=== PATIENT | male | born 1950 | race Native Hawaiian/Other Pacific Islander ===

== ENCOUNTER 2018-08-04 20:11 | Inpatient (IN) | payer MEDICARE ==
[2018-08-04 20:14] VITALS: BMI 31.6
[2018-08-04] MEDS ORDERED: Magnesium Hydroxide Susp 30 ml UD PO PRN (20:44)
[2018-08-04] MEDS ORDERED: Oxycodone/Acetaminophen 5/325 mg Tab PO PRN (20:47)
--- NOTE | 2018-08-04 21:05 | CP.PCM.HP ---
History of Present Illness - History of Present Illness History of Present Illness: CC: L knee surgery HPI: 68 year old male with HTN, OA, BPH, hypothyroid, presents to TCU s/p L knee replacement at [facility] by Dr. Cerda. Patient has history of OA, failed conservative treatments. Admitted to TCU for further PT needs. Patient was initiated on Lovenox 40 mg daily, DVT ppx per Ortho. HD stable, no acute distress. ROS: per HPI all other systems reviewed and neg Present on Admission - Present on Admission Any Indicators Present on Admission: No Past Patient History - Past Medical History & Family History Past Medical History?: Yes - Past Social History Smoking Status: Former Smoker - CARDIAC Hx Cardiac Disorders: Yes Hx Hypertension: Yes - PULMONARY Hx Respiratory Disorders: No - NEUROLOGICAL Hx Neurological Disorder: No - HEENT Hx HEENT Problems: Yes Hx Cataracts: Yes (right iol) - RENAL Hx Chronic Kidney Disease: No - ENDOCRINE/METABOLIC Hx Endocrine Disorders: No - HEMATOLOGICAL/ONCOLOGICAL Hx Blood Disorders: No - INTEGUMENTARY Hx Dermatological Problems: No - MUSCULOSKELETAL/RHEUMATOLOGICAL Hx Arthritis: Yes - GASTROINTESTINAL Hx Gastrointestinal Disorders: No - GENITOURINARY/GYNECOLOGICAL Hx Genitourinary Disorders: Yes Hx Prostate Problems: Yes - PSYCHIATRIC Hx Psychophysiologic Disorder: No Hx Substance Use: No - SURGICAL HISTORY Hx Surgeries: Yes Hx Arthroscopy: Yes (left) Hx Cataract Extraction: Yes (right iol) - ANESTHESIA Hx Anesthesia: Yes Hx Anesthesia Reactions: No Hx Malignant Hyperthermia: No Meds Allergies/Adverse Reactions: Allergies Allergy/AdvReac Type Severity Reaction Status Date / Time No Known Allergies Allergy Verified 08/02/18 05:59 Physical Exam - Constitutional Appears: Non-toxic, No Acute Distress - Head Exam Head Exam: ATRAUMATIC, NORMOCEPHALIC - Eye Exam Eye Exam: EOMI, Normal appearance, PERRL - ENT Exam ENT Exam: Mucous Membranes Moist, Normal Exam - Respiratory Exam Respiratory Exam: Clear to Auscultation Bilateral, NORMAL BREATHING PATTERN - Cardiovascular Exam Cardiovascular Exam: RRR, +S1, +S2 - GI/Abdominal Exam GI & Abdominal Exam: Normal Bowel Sounds, Soft. absent: Organomegaly, Tenderness - Extremities Exam Extremities exam: Positive for: normal capillary refill, pedal pulses present - Back Exam Back exam: absent: CVA tenderness (L), CVA tenderness (R) - Neurological Exam Neurological exam: Alert, Oriented x3 - Psychiatric Exam Psychiatric exam: Normal Affect, Normal Mood - Skin Skin Exam: Dry, Warm Assessment & Plan - Assessment and Plan (Free Text) Plan: 68 year old male with HTN, OA, BPH, hypothyroid, presents to TCU s/p L knee replacement at [facility] by Dr. Cerda. Patient has history of OA, failed conservative treatments. Admitted to TCU for further PT needs. Patient was initiated on Lovenox 40 mg daily, DVT ppx per Ortho. HD stable, no acute distress. Osteoarthritis S/P L total knee - Ortho Dr. Cerda - pain meds Percocet 1 tab mod, 2 tabs severe - PT/OT - lovenox 40 daily, DVT preference per Ortho HTN - continue Amlodipine and Losartan Hypothyroid - continue Levothyroxine BPH - continue Flomax
[2018-08-04] MEDS: Oxycodone/Acetaminophen 5/325 mg Tab PO PRN (21:39)
[2018-08-04 21:53] VITALS: RESP 20
[2018-08-05] MEDS: Oxycodone/Acetaminophen 5/325 mg Tab PO PRN ×3 (06:10→18:04)
[2018-08-05] MEDS: Levothyroxine 75 MCG TAB PO SCH (06:10)
[2018-08-05 08:02] LABS: BLOOD UREA NITROGEN 22 mg/dl (9-20); CALCIUM 8.8 mg/dL (8.4-10.2); GFR NON-AFRICAN AMERICAN > 60
[2018-08-05] MEDS ORDERED: IRON PO SCH (09:00)
[2018-08-05] MEDS ORDERED: FOLIC ACID PO SCH (09:00)
[2018-08-05] MEDS ORDERED: MULTIVITAMIN PO SCH (09:00)
[2018-08-05] MEDS: Enoxaparin 40 mg Syringe SC SCH (09:23)
[2018-08-05] MEDS: Multivitamin With Minerals Tab PO SCH (09:24)
[2018-08-05] MEDS ORDERED: Oxycodone/Acetaminophen 5/325 mg Tab PO PRN (09:41)
[2018-08-05 10:42] LABS: HEMOGLOBIN 11.2 g/dL (12.0-18.0); MEAN CELL VOLUME 92.2 fl (80.0-94.0); MEAN CORPUSCULAR HEMOGLOBIN 30.2 pg (27.0-31.0); MEAN CORPUSCULAR HGB CONC 32.8 g/dL (33.0-37.0); RBC 3.69 Mil/uL (4.40-5.90); RED CELL DISTRIBUTION WIDTH 13.2 % (11.5-14.5); WHITE BLOOD COUNT 7.8 K/uL (4.8-10.8)
--- NOTE | 2018-08-05 15:39 | CP.PCM.PN ---
Subjective - Date & Time of Evaluation Date of Evaluation: 08/05/18 Time of Evaluation: 12:00 - Subjective Subjective: Patient seen and examined at bedside. Pain well controlled. Transferred from [facility] stable. C/o Bloody drainage to dressings. Drain removed yesterday. Also c/o constipation. Denies CP/SOB/dizziness/fever. Objective - Vital Signs/Intake and Output Vital Signs (last 24 hours): Temp Pulse Resp BP Pulse Ox 98.3 F 83 20 141/69 98 08/05/18 08:25 08/05/18 10:55 08/05/18 08:25 08/05/18 10:55 08/05/18 08:25 - Medications Medications: Current Medications Acetaminophen (Tylenol 325mg Tab) 650 mg PO Q4 PRN PRN Reason: Fever of 100.6 F and Above Amlodipine Besylate (Norvasc) 10 mg PO DAILY [facility] Last Admin: 08/05/18 09:23 Dose: 10 mg Docusate Sodium (Colace) 100 mg PO BID PRN PRN Reason: Constipation Enoxaparin Sodium (Lovenox) 40 mg SC DAILY [facility]; Protocol Last Admin: 08/05/18 09:23 Dose: 40 mg Lactulose (Enulose) 20 gm PO DAILY PRN PRN Reason: Constipation Last Admin: 08/05/18 10:32 Dose: 20 gm Levothyroxine Sodium (Synthroid) 75 mcg PO DAILY@0630 [facility] Last Admin: 08/05/18 06:10 Dose: 75 mcg Losartan Potassium (Cozaar) 100 mg PO DAILY [facility] Last Admin: 08/05/18 09:22 Dose: 100 mg Magnesium Hydroxide (Milk Of Magnesia) 30 ml PO HS PRN PRN Reason: If No Bowel Movement in 3 Days Multivitamins/Minerals (Therapeutic-M Tab) 1 tab PO DAILY [facility] Last Admin: 08/05/18 09:24 Dose: 1 tab Oxycodone/Acetaminophen (Percocet 5/325 Mg Tab) 2 tab PO Q4 PRN PRN Reason: Pain, severe (8-10) Stop: 08/08/18 13:01 Oxycodone/Acetaminophen (Percocet 5/325 Mg Tab) 1 tab PO Q4 PRN PRN Reason: Pain, moderate (4-7) Stop: 08/08/18 13:58 Last Admin: 08/05/18 14:04 Dose: 1 tab Tamsulosin HCl (Flomax) 0.4 mg PO DAILY [facility] Last Admin: 08/05/18 09:23 Dose: 0.4 mg - Labs Labs: 08/05/18 07:40 08/05/18 07:40 - Extremities Exam Additional comments: L knee: Dressings intact with mild dry blood Incision intact with vamshi, no active drainage, no erythema drain site clean and dry sensation intact SP/DP/TN Motor intact EHL/FHL pedal pulse intact calves soft NT b/l Assessment and Plan (1) Status post total left knee replacement Assessment & Plan: POD#3 s/p L TKA -Dressings changed -PT/OT -DVT ppx -orthopedically stable -above d/w Dr. Cerda in agreement Status: Acute
--- NOTE | 2018-08-05 16:13 | CP.PCM.PN ---
Subjective - Date & Time of Evaluation Date of Evaluation: 08/05/18 Time of Evaluation: 11:10 - Subjective Subjective: Patient seen and examined. Denied any complaint. Objective - Vital Signs/Intake and Output Vital Signs (last 24 hours): Temp Pulse Resp BP Pulse Ox 98.3 F 83 20 141/69 98 08/05/18 08:25 08/05/18 10:55 08/05/18 08:25 08/05/18 10:55 08/05/18 08:25 - Medications Medications: Current Medications Acetaminophen (Tylenol 325mg Tab) 650 mg PO Q4 PRN PRN Reason: Fever of 100.6 F and Above Amlodipine Besylate (Norvasc) 10 mg PO DAILY [facility] Last Admin: 08/05/18 09:23 Dose: 10 mg Docusate Sodium (Colace) 100 mg PO BID PRN PRN Reason: Constipation Enoxaparin Sodium (Lovenox) 40 mg SC DAILY [facility]; Protocol Last Admin: 08/05/18 09:23 Dose: 40 mg Lactulose (Enulose) 20 gm PO DAILY PRN PRN Reason: Constipation Last Admin: 08/05/18 10:32 Dose: 20 gm Levothyroxine Sodium (Synthroid) 75 mcg PO DAILY@0630 [facility] Last Admin: 08/05/18 06:10 Dose: 75 mcg Losartan Potassium (Cozaar) 100 mg PO DAILY [facility] Last Admin: 08/05/18 09:22 Dose: 100 mg Magnesium Hydroxide (Milk Of Magnesia) 30 ml PO HS PRN PRN Reason: If No Bowel Movement in 3 Days Multivitamins/Minerals (Therapeutic-M Tab) 1 tab PO DAILY [facility] Last Admin: 08/05/18 09:24 Dose: 1 tab Oxycodone/Acetaminophen (Percocet 5/325 Mg Tab) 2 tab PO Q4 PRN PRN Reason: Pain, severe (8-10) Stop: 08/08/18 13:01 Oxycodone/Acetaminophen (Percocet 5/325 Mg Tab) 1 tab PO Q4 PRN PRN Reason: Pain, moderate (4-7) Stop: 08/08/18 13:58 Last Admin: 08/05/18 14:04 Dose: 1 tab Tamsulosin HCl (Flomax) 0.4 mg PO DAILY [facility] Last Admin: 08/05/18 09:23 Dose: 0.4 mg - Labs Labs: 08/05/18 07:40 08/05/18 07:40 - Constitutional Appears: No Acute Distress - Head Exam Head Exam: ATRAUMATIC - Eye Exam Eye Exam: absent: Scleral icterus - ENT Exam ENT Exam: Mucous Membranes Moist - Neck Exam Neck Exam: absent: Meningismus - Respiratory Exam Respiratory Exam: absent: Rales, Rhonchi, Wheezes, Respiratory Distress - Cardiovascular Exam Cardiovascular Exam: REGULAR RHYTHM, +S1, +S2 - GI/Abdominal Exam GI & Abdominal Exam: Soft. absent: Tenderness - Rectal Exam Rectal Exam: Deferred - Back Exam Back Exam: NORMAL INSPECTION - Neurological Exam Neurological Exam: Alert, Oriented x3 - Psychiatric Exam Psychiatric exam: Normal Affect - Skin Skin Exam: Dry, Intact Assessment and Plan - Assessment and Plan (Free Text) Assessment: 68 yo male with history of HTN, OA, BPH and Hypothyroid had left TKR at [facility] on 08/02/2018 after failing conservative management of OA of the left knee. 1. Post Left TKR continue PT/OT pain management 2. HTN BP stable continue Amlodipine and Losartan 3. Hypothyroid continue Levothyroxine 4. BPH continue Flomax 5. DVT prophylaxis Lovenox 40mg SC daily
[2018-08-06] MEDS: Oxycodone/Acetaminophen 5/325 mg Tab PO PRN ×3 (01:19→15:36)
[2018-08-06] MEDS: Levothyroxine 75 MCG TAB PO SCH (06:11)
[2018-08-06] MEDS: Enoxaparin 40 mg Syringe SC SCH (08:58)
[2018-08-06] MEDS: Multivitamin With Minerals Tab PO SCH (08:58)
--- NOTE | 2018-08-06 09:53 | CP.PCM.PN ---
Subjective - Date & Time of Evaluation Date of Evaluation: 08/06/18 Time of Evaluation: 09:50 - Subjective Subjective: Patient states pain is well controlled. He says his leg is swollen. Tolerating PT well. Objective - Vital Signs/Intake and Output Vital Signs (last 24 hours): Temp Pulse Resp BP Pulse Ox 98.2 F 76 20 147/80 98 08/06/18 09:05 08/06/18 09:05 08/06/18 09:05 08/06/18 09:05 08/06/18 09:05 - Medications Medications: Current Medications Acetaminophen (Tylenol 325mg Tab) 650 mg PO Q4 PRN PRN Reason: Fever of 100.6 F and Above Amlodipine Besylate (Norvasc) 10 mg PO DAILY [facility] Last Admin: 08/06/18 08:59 Dose: 10 mg Docusate Sodium (Colace) 100 mg PO BID PRN PRN Reason: Constipation Last Admin: 08/06/18 08:59 Dose: 100 mg Enoxaparin Sodium (Lovenox) 40 mg SC DAILY [facility]; Protocol Last Admin: 08/06/18 08:58 Dose: 40 mg Lactulose (Enulose) 20 gm PO DAILY PRN PRN Reason: Constipation Last Admin: 08/05/18 10:32 Dose: 20 gm Levothyroxine Sodium (Synthroid) 75 mcg PO DAILY@0630 [facility] Last Admin: 08/06/18 06:11 Dose: 75 mcg Losartan Potassium (Cozaar) 100 mg PO DAILY [facility] Last Admin: 08/06/18 08:58 Dose: 100 mg Magnesium Hydroxide (Milk Of Magnesia) 30 ml PO HS PRN PRN Reason: If No Bowel Movement in 3 Days Multivitamins/Minerals (Therapeutic-M Tab) 1 tab PO DAILY [facility] Last Admin: 08/06/18 08:58 Dose: 1 tab Oxycodone/Acetaminophen (Percocet 5/325 Mg Tab) 2 tab PO Q4 PRN PRN Reason: Pain, severe (8-10) Stop: 08/08/18 13:01 Oxycodone/Acetaminophen (Percocet 5/325 Mg Tab) 1 tab PO Q4 PRN PRN Reason: Pain, moderate (4-7) Stop: 08/08/18 13:58 Last Admin: 08/06/18 09:07 Dose: 1 tab Tamsulosin HCl (Flomax) 0.4 mg PO DAILY [facility] Last Admin: 08/06/18 08:59 Dose: 0.4 mg - Labs Labs: 08/05/18 07:40 08/05/18 07:40 - Extremities Exam Additional comments: Dressing change. Scant serous drainage., No erythema, LLE very swollen to foot. +ROM lee/toes, sensation intact Assessment and Plan (1) Osteoarthritis of left knee Assessment & Plan: dopplers r/o DVT elevation ray for compression resume pt if dopplers neg d/w DR. Cerda, agrees with above Status: Acute
--- NOTE | 2018-08-06 10:12 | CP.PCM.CON ---
History of Present Illness - History of Present Illness History of Present Illness: 68 year old male with total knee replacement secondary to failed conservative treatment for arthritis with history of HTN, OA, Hypothroidism now for rehab, Review of Systems - Musculoskeletal Musculoskeletal: Limited Range of Motion, Muscle Weakness Past Patient History - Past Medical History & Family History Past Medical History?: Yes - Past Social History Smoking Status: Former Smoker - CARDIAC Hx Cardiac Disorders: Yes Hx Hypertension: Yes - PULMONARY Hx Respiratory Disorders: No - NEUROLOGICAL Hx Neurological Disorder: No - HEENT Hx HEENT Problems: Yes Hx Cataracts: Yes (right) - RENAL Hx Chronic Kidney Disease: No - ENDOCRINE/METABOLIC Hx Endocrine Disorders: No - HEMATOLOGICAL/ONCOLOGICAL Hx Blood Disorders: No - INTEGUMENTARY Hx Dermatological Problems: No - MUSCULOSKELETAL/RHEUMATOLOGICAL Hx Arthritis: Yes - GASTROINTESTINAL Hx Gastrointestinal Disorders: No - GENITOURINARY/GYNECOLOGICAL Hx Genitourinary Disorders: Yes Hx Prostate Problems: Yes - PSYCHIATRIC Hx Psychophysiologic Disorder: No Hx Substance Use: No - SURGICAL HISTORY Hx Surgeries: Yes Hx Arthroscopy: Yes (left) Hx Cataract Extraction: Yes (right iol) Other/Comment: LTKR 08/02 - ANESTHESIA Hx Anesthesia: Yes Hx Anesthesia Reactions: No Hx Malignant Hyperthermia: No Meds Allergies/Adverse Reactions: Allergies Allergy/AdvReac Type Severity Reaction Status Date / Time No Known Allergies Allergy Verified 08/02/18 05:59 - Medications Medications: Current Medications Acetaminophen (Tylenol 325mg Tab) 650 mg PO Q4 PRN PRN Reason: Fever of 100.6 F and Above Amlodipine Besylate (Norvasc) 10 mg PO DAILY [facility] Last Admin: 08/06/18 08:59 Dose: 10 mg Docusate Sodium (Colace) 100 mg PO BID PRN PRN Reason: Constipation Last Admin: 08/06/18 08:59 Dose: 100 mg Enoxaparin Sodium (Lovenox) 40 mg SC DAILY [facility]; Protocol Last Admin: 08/06/18 08:58 Dose: 40 mg Lactulose (Enulose) 20 gm PO DAILY PRN PRN Reason: Constipation Last Admin: 08/05/18 10:32 Dose: 20 gm Levothyroxine Sodium (Synthroid) 75 mcg PO DAILY@0630 [facility] Last Admin: 08/06/18 06:11 Dose: 75 mcg Losartan Potassium (Cozaar) 100 mg PO DAILY [facility] Last Admin: 08/06/18 08:58 Dose: 100 mg Magnesium Hydroxide (Milk Of Magnesia) 30 ml PO HS PRN PRN Reason: If No Bowel Movement in 3 Days Multivitamins/Minerals (Therapeutic-M Tab) 1 tab PO DAILY [facility] Last Admin: 08/06/18 08:58 Dose: 1 tab Oxycodone/Acetaminophen (Percocet 5/325 Mg Tab) 2 tab PO Q4 PRN PRN Reason: Pain, severe (8-10) Stop: 08/08/18 13:01 Oxycodone/Acetaminophen (Percocet 5/325 Mg Tab) 1 tab PO Q4 PRN PRN Reason: Pain, moderate (4-7) Stop: 08/08/18 13:58 Last Admin: 08/06/18 09:07 Dose: 1 tab Tamsulosin HCl (Flomax) 0.4 mg PO DAILY [facility] Last Admin: 08/06/18 08:59 Dose: 0.4 mg Physical Exam - Constitutional Appears: Well - Head Exam Head Exam: ATRAUMATIC, NORMAL INSPECTION, NORMOCEPHALIC - Eye Exam Eye Exam: EOMI, Normal appearance Pupil Exam: NORMAL ACCOMODATION, PERRL - ENT Exam ENT Exam: Mucous Membranes Moist, Normal Exam - Neck Exam Neck exam: Positive for: Normal Inspection - Respiratory Exam Respiratory Exam: Clear to Auscultation Bilateral, NORMAL BREATHING PATTERN - Cardiovascular Exam Cardiovascular Exam: REGULAR RHYTHM - GI/Abdominal Exam GI & Abdominal Exam: Normal Bowel Sounds - Rectal Exam Rectal Exam: NORMAL INSPECTION - Exam External exam: NORMAL EXTERNAL EXAM - Extremities Exam Extremities exam: Positive for: normal inspection Additional comments: left leg weakness with LKR - Back Exam Back exam: NORMAL INSPECTION - Neurological Exam Neurological exam: Alert - Psychiatric Exam Psychiatric exam: Normal Affect - Skin Skin Exam: Dry, Normal Color Results - Vital Signs Recent Vital Signs: Last Vital Signs Temp 98.2 F 08/06/18 09:05 Pulse 76 08/06/18 09:05 Resp 20 08/06/18 09:05 BP 147/80 08/06/18 09:05 Pulse Ox 98 08/06/18 09:05 - Labs Result Diagrams: 08/05/18 07:40 08/05/18 07:40 Labs: Laboratory Results - last 24 hr 08/05/18 07:40 WBC 7.8 RBC 3.69 L Hgb 11.2 L Hct 34.0 L MCV 92.2 MCH 30.2 MCHC 32.8 L RDW 13.2 Plt Count 157 Assessment & Plan (1) Status post total left knee replacement Assessment and Plan: plan for physical, occupational therapy for range of motion, strengthening, fish sfers and gait training. Monitor pain, skin. Equipment evaluation as well . Thank you for the referral. Status: Acute (2) Hypertension Status: Acute (3) Osteoarthritis of left knee Status: Acute
--- NOTE | 2018-08-06 14:45 | CP.PCM.PN ---
Subjective - Date & Time of Evaluation Date of Evaluation: 08/06/18 Time of Evaluation: 13:10 - Subjective Subjective: patient lying in bed, sitting next to , complaining of mild knee discomfort Objective - Vital Signs/Intake and Output Vital Signs (last 24 hours): Temp Pulse Resp BP Pulse Ox 98.2 F 76 20 147/80 98 08/06/18 09:05 08/06/18 13:42 08/06/18 09:05 08/06/18 13:42 08/06/18 13:42 - Medications Medications: Current Medications Acetaminophen (Tylenol 325mg Tab) 650 mg PO Q4 PRN PRN Reason: Fever of 100.6 F and Above Amlodipine Besylate (Norvasc) 10 mg PO DAILY [facility] Last Admin: 08/06/18 08:59 Dose: 10 mg Docusate Sodium (Colace) 100 mg PO BID PRN PRN Reason: Constipation Last Admin: 08/06/18 08:59 Dose: 100 mg Enoxaparin Sodium (Lovenox) 40 mg SC DAILY [facility]; Protocol Last Admin: 08/06/18 08:58 Dose: 40 mg Lactulose (Enulose) 20 gm PO DAILY PRN PRN Reason: Constipation Last Admin: 08/05/18 10:32 Dose: 20 gm Levothyroxine Sodium (Synthroid) 75 mcg PO DAILY@0630 [facility] Last Admin: 08/06/18 06:11 Dose: 75 mcg Losartan Potassium (Cozaar) 100 mg PO DAILY [facility] Last Admin: 08/06/18 08:58 Dose: 100 mg Magnesium Hydroxide (Milk Of Magnesia) 30 ml PO HS PRN PRN Reason: If No Bowel Movement in 3 Days Multivitamins/Minerals (Therapeutic-M Tab) 1 tab PO DAILY [facility] Last Admin: 08/06/18 08:58 Dose: 1 tab Oxycodone/Acetaminophen (Percocet 5/325 Mg Tab) 2 tab PO Q4 PRN PRN Reason: Pain, severe (8-10) Stop: 08/08/18 13:01 Oxycodone/Acetaminophen (Percocet 5/325 Mg Tab) 1 tab PO Q4 PRN PRN Reason: Pain, moderate (4-7) Stop: 08/08/18 13:58 Last Admin: 08/06/18 09:07 Dose: 1 tab Tamsulosin HCl (Flomax) 0.4 mg PO DAILY [facility] Last Admin: 08/06/18 08:59 Dose: 0.4 mg - Labs Labs: 08/05/18 07:40 08/05/18 07:40 - Constitutional Appears: Well - Head Exam Head Exam: ATRAUMATIC, NORMAL INSPECTION, NORMOCEPHALIC - Eye Exam Eye Exam: EOMI, Normal appearance, PERRL Pupil Exam: NORMAL ACCOMODATION, PERRL - ENT Exam ENT Exam: Mucous Membranes Moist, Normal Exam - Neck Exam Neck Exam: Full ROM, Normal Inspection - Respiratory Exam Respiratory Exam: Clear to Ausculation Bilateral - Cardiovascular Exam Cardiovascular Exam: REGULAR RHYTHM - GI/Abdominal Exam GI & Abdominal Exam: Soft, Normal Bowel Sounds - Rectal Exam Rectal Exam: NORMAL INSPECTION - Exam External exam: NORMAL EXTERNAL EXAM - Extremities Exam Extremities Exam: Full ROM, Normal Capillary Refill, Normal Inspection - Back Exam Back Exam: NORMAL INSPECTION - Neurological Exam Neurological Exam: Alert, Awake Neuro motor strength exam: Left Lower Extremity: 3 - Psychiatric Exam Psychiatric exam: Normal Affect, Normal Mood - Skin Skin Exam: Dry, Normal Color Assessment and Plan (1) Status post total left knee replacement Assessment & Plan: plan for physical, occupational therapy program, knee with ray wraps, plan for range of motion, strengthening, transfers and gait training. CPM machine for the left knee Status: Acute (2) Hypertension Status: Acute (3) Osteoarthritis of left knee Status: Acute
[2018-08-07] MEDS: Levothyroxine 75 MCG TAB PO SCH (05:50)
[2018-08-07] MEDS: Enoxaparin 40 mg Syringe SC SCH (09:44)
[2018-08-07] MEDS: Multivitamin With Minerals Tab PO SCH (09:44)
[2018-08-07] MEDS: Oxycodone/Acetaminophen 5/325 mg Tab PO PRN (17:36)
[2018-08-08] MEDS: Levothyroxine 75 MCG TAB PO SCH (05:58)
[2018-08-08] MEDS: Multivitamin With Minerals Tab PO SCH (09:54)
[2018-08-08] MEDS: Enoxaparin 40 mg Syringe SC SCH (09:55)
[2018-08-08] MEDS ORDERED: Oxycodone/Acetaminophen 5/325 mg Tab PO PRN (20:49)
[2018-08-09] MEDS: Levothyroxine 75 MCG TAB PO SCH (05:51)
[2018-08-09] MEDS: Enoxaparin 40 mg Syringe SC SCH (08:03)
[2018-08-09] MEDS: Multivitamin With Minerals Tab PO SCH (08:04)
[2018-08-09] MEDS: Oxycodone/Acetaminophen 5/325 mg Tab PO PRN (12:38)
--- NOTE | 2018-08-09 15:30 | CP.PCM.PN ---
Subjective - Date & Time of Evaluation Date of Evaluation: 08/09/18 Time of Evaluation: 15:28 - Subjective Subjective: Patient still complaining of some urinary retention but improving. Complains of constipation. Still leg swelling, encouraging AROM, elevation Objective - Vital Signs/Intake and Output Vital Signs (last 24 hours): Temp Pulse Resp BP Pulse Ox 97.9 F 68 20 131/61 98 08/09/18 07:50 08/09/18 09:12 08/09/18 07:50 08/09/18 09:12 08/09/18 09:12 - Medications Medications: Current Medications Acetaminophen (Tylenol 325mg Tab) 650 mg PO Q4 PRN PRN Reason: Fever of 100.6 F and Above Last Admin: 08/09/18 05:16 Dose: 650 mg Acetaminophen (Tylenol 325mg Tab) 650 mg PO Q6 PRN PRN Reason: Pain, Mild (1-3) Amlodipine Besylate (Norvasc) 10 mg PO DAILY [facility] Last Admin: 08/09/18 08:05 Dose: 10 mg Docusate Sodium (Colace) 100 mg PO BID PRN PRN Reason: Constipation Last Admin: 08/07/18 09:46 Dose: 100 mg Enoxaparin Sodium (Lovenox) 40 mg SC DAILY [facility]; Protocol Last Admin: 08/09/18 08:03 Dose: 40 mg Lactulose (Enulose) 20 gm PO DAILY PRN PRN Reason: Constipation Last Admin: 08/06/18 15:41 Dose: 20 gm Levothyroxine Sodium (Synthroid) 75 mcg PO DAILY@0630 [facility] Last Admin: 08/09/18 05:51 Dose: 75 mcg Losartan Potassium (Cozaar) 100 mg PO DAILY [facility] Last Admin: 08/09/18 08:04 Dose: 100 mg Magnesium Hydroxide (Milk Of Magnesia) 30 ml PO HS PRN PRN Reason: If No Bowel Movement in 3 Days Last Admin: 08/06/18 22:54 Dose: 30 ml Multivitamins/Minerals (Therapeutic-M Tab) 1 tab PO DAILY [facility] Last Admin: 08/09/18 08:04 Dose: 1 tab Oxycodone/Acetaminophen (Percocet 5/325 Mg Tab) 2 tab PO Q4 PRN PRN Reason: Pain, severe (8-10) Stop: 08/11/18 20:50 Last Admin: 08/09/18 08:02 Dose: 2 tab Oxycodone/Acetaminophen (Percocet 5/325 Mg Tab) 1 tab PO Q4 PRN PRN Reason: Pain, moderate (4-7) Stop: 08/12/18 12:26 Last Admin: 08/09/18 12:38 Dose: 1 tab Tamsulosin HCl (Flomax) 0.4 mg PO DAILY [facility] Last Admin: 08/09/18 08:04 Dose: 0.4 mg - Labs Labs: 08/05/18 07:40 08/05/18 07:40 - Extremities Exam Additional comments: no erythema, scant drainage. Still peripheral edema, not worse. +ROM ankle/toes, sensation intact, +DP/PT pulses, calf swollen non tender negative homans Assessment and Plan (1) Osteoarthritis of left knee Assessment & Plan: POD#7 s/p TKR cont vte proph dopplers neg elevation, compression, AROM check u/a encourage PO intake and OOB d/w Dr. Cerda, agrees with above Status: Acute
[2018-08-10] MEDS: Levothyroxine 75 MCG TAB PO SCH (05:50)
[2018-08-10] MEDS: Enoxaparin 40 mg Syringe SC SCH (08:17)
[2018-08-10] MEDS: Multivitamin With Minerals Tab PO SCH (08:17)
--- NOTE | 2018-08-10 10:19 | CP.PCM.PN ---
Subjective - Date & Time of Evaluation Date of Evaluation: 08/10/18 Time of Evaluation: 11:00 - Subjective Subjective: Patient seen and examined bedside . Complains of pain to Left knee. Complains of dysuria , urinary frequency and incontinence . has history of BPH and used to be on Flomax and Finasteride but since surgery has been ghaving dysuria He is hemodynamically stable, afebrile No acute issues overnight Objective - Vital Signs/Intake and Output Vital Signs (last 24 hours): Temp Pulse Resp BP Pulse Ox 98.5 F 71 20 139/72 96 08/10/18 08:11 08/10/18 08:11 08/10/18 08:11 08/10/18 08:11 08/10/18 08:11 - Medications Medications: Current Medications Acetaminophen (Tylenol 325mg Tab) 650 mg PO Q4 PRN PRN Reason: Fever of 100.6 F and Above Last Admin: 08/09/18 05:16 Dose: 650 mg Acetaminophen (Tylenol 325mg Tab) 650 mg PO Q6 PRN PRN Reason: Pain, Mild (1-3) Last Admin: 08/10/18 01:59 Dose: 650 mg Amlodipine Besylate (Norvasc) 10 mg PO DAILY [facility] Last Admin: 08/10/18 08:17 Dose: 10 mg Docusate Sodium (Colace) 100 mg PO BID PRN PRN Reason: Constipation Last Admin: 08/10/18 08:17 Dose: 100 mg Enoxaparin Sodium (Lovenox) 40 mg SC DAILY [facility]; Protocol Last Admin: 08/10/18 08:17 Dose: 40 mg Lactulose (Enulose) 20 gm PO DAILY PRN PRN Reason: Constipation Last Admin: 08/10/18 02:01 Dose: 20 gm Levothyroxine Sodium (Synthroid) 75 mcg PO DAILY@0630 [facility] Last Admin: 08/10/18 05:50 Dose: 75 mcg Losartan Potassium (Cozaar) 100 mg PO DAILY [facility] Last Admin: 08/10/18 08:17 Dose: 100 mg Magnesium Hydroxide (Milk Of Magnesia) 30 ml PO HS PRN PRN Reason: If No Bowel Movement in 3 Days Last Admin: 08/06/18 22:54 Dose: 30 ml Multivitamins/Minerals (Therapeutic-M Tab) 1 tab PO DAILY [facility] Last Admin: 08/10/18 08:17 Dose: 1 tab Oxycodone/Acetaminophen (Percocet 5/325 Mg Tab) 2 tab PO Q4 PRN PRN Reason: Pain, severe (8-10) Stop: 08/11/18 20:50 Last Admin: 08/09/18 08:02 Dose: 2 tab Oxycodone/Acetaminophen (Percocet 5/325 Mg Tab) 1 tab PO Q4 PRN PRN Reason: Pain, moderate (4-7) Stop: 08/12/18 12:26 Last Admin: 08/09/18 12:38 Dose: 1 tab Tamsulosin HCl (Flomax) 0.4 mg PO DAILY [facility] Last Admin: 08/10/18 08:17 Dose: 0.4 mg - Labs Labs: 08/05/18 07:40 08/05/18 07:40 - Constitutional Appears: Non-toxic, No Acute Distress - Head Exam Head Exam: ATRAUMATIC, NORMAL INSPECTION, NORMOCEPHALIC - Eye Exam Eye Exam: EOMI, Normal appearance, PERRL Pupil Exam: NORMAL ACCOMODATION - ENT Exam ENT Exam: Mucous Membranes Moist, Normal Exam - Neck Exam Neck Exam: Full ROM, Normal Inspection - Respiratory Exam Respiratory Exam: Clear to Ausculation Bilateral, NORMAL BREATHING PATTERN. absent: Rales, Rhonchi, Wheezes - Cardiovascular Exam Cardiovascular Exam: REGULAR RHYTHM, RRR, +S1, +S2. absent: JVD - GI/Abdominal Exam GI & Abdominal Exam: Soft, Normal Bowel Sounds. absent: Distended, Guarding, Rebound - Rectal Exam Rectal Exam: Deferred - Extremities Exam Extremities Exam: Full ROM, Normal Capillary Refill Additional comments: Left knee dressing in place - Back Exam Back Exam: NORMAL INSPECTION - Neurological Exam Neurological Exam: Alert, Awake, CN II-XII Intact, Oriented x3 - Psychiatric Exam Psychiatric exam: Normal Affect - Skin Skin Exam: Dry, Normal Color, Warm Assessment and Plan - Assessment and Plan (Free Text) Assessment: 68 yo male with history of HTN, OA, BPH and Hypothyroid had left TKR at [facility] on 08/02/2018 after failing conservative management of OA of the left knee.At present in TCU participating with PT . Comaplins of pain to left knee, dysuria ,frequency and incontinence 1. Post Left TKR with pain to left knee but better controlled participating with PT Continue pain management Continue PT 2, Dysuria and incontinence will need to rule out UTI Send UA and urine cx Start pyridium PO 3. HTN BP stable continue Amlodipine and Losartan 4. Hypothyroid continue Levothyroxine 5. BPH continue Flomax Start Finasteride 6. Constipation on Colace, lactulose and Dulcolax 7. DVT prophylaxis Lovenox 40mg SC daily
[2018-08-10] MEDS: Oxycodone/Acetaminophen 5/325 mg Tab PO PRN (11:56)
[2018-08-10 17:22] LABS: URINE BILIRUBIN NEGATIVE (NEGATIVE); URINE BLOOD NEGATIVE (NEGATIVE); URINE CLARITY CLEAR (Clear); URINE COLOR YELLOW (YELLOW); URINE GLUCOSE (UA) NEG (NEGATIVE); URINE LEUKOCYTE ESTERASE NEG Leu/uL (Negative); URINE PROTEIN NEGATIVE (NEGATIVE); URINE UROBILINOGEN 0.2-1.0 mg/dL (0.2-1.0)
--- NOTE | 2018-08-10 19:20 | CP.PCM.PN ---
Subjective - Date & Time of Evaluation Date of Evaluation: 08/08/18 Time of Evaluation: 12:00 - Subjective Subjective: no acute knee pain . mild discomfort Objective - Vital Signs/Intake and Output Vital Signs (last 24 hours): Temp Pulse Resp BP Pulse Ox 98.3 F 74 20 139/68 98 08/10/18 15:40 08/10/18 15:40 08/10/18 15:40 08/10/18 15:40 08/10/18 15:40 - Medications Medications: Current Medications Acetaminophen (Tylenol 325mg Tab) 650 mg PO Q4 PRN PRN Reason: Fever of 100.6 F and Above Last Admin: 08/09/18 05:16 Dose: 650 mg Acetaminophen (Tylenol 325mg Tab) 650 mg PO Q6 PRN PRN Reason: Pain, Mild (1-3) Last Admin: 08/10/18 01:59 Dose: 650 mg Amlodipine Besylate (Norvasc) 10 mg PO DAILY [facility] Last Admin: 08/10/18 08:17 Dose: 10 mg Docusate Sodium (Colace) 100 mg PO BID PRN PRN Reason: Constipation Last Admin: 08/10/18 08:17 Dose: 100 mg Enoxaparin Sodium (Lovenox) 40 mg SC DAILY [facility]; Protocol Last Admin: 08/10/18 08:17 Dose: 40 mg Finasteride (Proscar) 5 mg PO DAILY [facility] Lactulose (Enulose) 20 gm PO DAILY PRN PRN Reason: Constipation Last Admin: 08/10/18 02:01 Dose: 20 gm Levothyroxine Sodium (Synthroid) 75 mcg PO DAILY@0630 [facility] Last Admin: 08/10/18 05:50 Dose: 75 mcg Losartan Potassium (Cozaar) 100 mg PO DAILY [facility] Last Admin: 08/10/18 08:17 Dose: 100 mg Magnesium Hydroxide (Milk Of Magnesia) 30 ml PO HS PRN PRN Reason: If No Bowel Movement in 3 Days Last Admin: 08/06/18 22:54 Dose: 30 ml Multivitamins/Minerals (Therapeutic-M Tab) 1 tab PO DAILY [facility] Last Admin: 08/10/18 08:17 Dose: 1 tab Oxycodone/Acetaminophen (Percocet 5/325 Mg Tab) 2 tab PO Q4 PRN PRN Reason: Pain, severe (8-10) Stop: 08/11/18 20:50 Last Admin: 08/09/18 08:02 Dose: 2 tab Oxycodone/Acetaminophen (Percocet 5/325 Mg Tab) 1 tab PO Q4 PRN PRN Reason: Pain, moderate (4-7) Stop: 08/12/18 12:26 Last Admin: 08/10/18 11:56 Dose: 1 tab Phenazopyridine HCl (Pyridium) 100 mg PO TID [facility] Last Admin: 08/10/18 17:21 Dose: 100 mg Tamsulosin HCl (Flomax) 0.4 mg PO DAILY [facility] Last Admin: 08/10/18 08:17 Dose: 0.4 mg - Labs Labs: 08/05/18 07:40 08/05/18 07:40 - Constitutional Appears: Well - Head Exam Head Exam: ATRAUMATIC, NORMAL INSPECTION, NORMOCEPHALIC - Eye Exam Eye Exam: EOMI, Normal appearance Pupil Exam: NORMAL ACCOMODATION, PERRL - ENT Exam ENT Exam: Mucous Membranes Moist, Normal Exam - Neck Exam Neck Exam: Normal Inspection - Respiratory Exam Respiratory Exam: Clear to Ausculation Bilateral, NORMAL BREATHING PATTERN - Cardiovascular Exam Cardiovascular Exam: REGULAR RHYTHM - GI/Abdominal Exam GI & Abdominal Exam: Soft, Normal Bowel Sounds - Rectal Exam Rectal Exam: NORMAL INSPECTION - Exam External exam: NORMAL EXTERNAL EXAM - Extremities Exam Extremities Exam: Full ROM, Normal Capillary Refill - Back Exam Back Exam: NORMAL INSPECTION - Neurological Exam Neurological Exam: Alert Neuro motor strength exam: Right Lower Extremity: 3 - Psychiatric Exam Psychiatric exam: Normal Mood - Skin Skin Exam: Normal Color Assessment and Plan (1) Status post total left knee replacement Assessment & Plan: ray wrap on the knee, CPM, plan for physical and occupational therapy. Status: Acute (2) Hypertension Status: Acute (3) Osteoarthritis of left knee Status: Acute
--- NOTE | 2018-08-10 19:22 | CP.PCM.PN ---
Subjective - Date & Time of Evaluation Date of Evaluation: 08/10/18 Time of Evaluation: 10:00 - Subjective Subjective: patient with less knee pain, occasional back pain Objective - Vital Signs/Intake and Output Vital Signs (last 24 hours): Temp Pulse Resp BP Pulse Ox 98.3 F 74 20 139/68 98 08/10/18 15:40 08/10/18 15:40 08/10/18 15:40 08/10/18 15:40 08/10/18 15:40 - Medications Medications: Current Medications Acetaminophen (Tylenol 325mg Tab) 650 mg PO Q4 PRN PRN Reason: Fever of 100.6 F and Above Last Admin: 08/09/18 05:16 Dose: 650 mg Acetaminophen (Tylenol 325mg Tab) 650 mg PO Q6 PRN PRN Reason: Pain, Mild (1-3) Last Admin: 08/10/18 01:59 Dose: 650 mg Amlodipine Besylate (Norvasc) 10 mg PO DAILY [facility] Last Admin: 08/10/18 08:17 Dose: 10 mg Docusate Sodium (Colace) 100 mg PO BID PRN PRN Reason: Constipation Last Admin: 08/10/18 08:17 Dose: 100 mg Enoxaparin Sodium (Lovenox) 40 mg SC DAILY [facility]; Protocol Last Admin: 08/10/18 08:17 Dose: 40 mg Finasteride (Proscar) 5 mg PO DAILY [facility] Lactulose (Enulose) 20 gm PO DAILY PRN PRN Reason: Constipation Last Admin: 08/10/18 02:01 Dose: 20 gm Levothyroxine Sodium (Synthroid) 75 mcg PO DAILY@0630 [facility] Last Admin: 08/10/18 05:50 Dose: 75 mcg Losartan Potassium (Cozaar) 100 mg PO DAILY [facility] Last Admin: 08/10/18 08:17 Dose: 100 mg Magnesium Hydroxide (Milk Of Magnesia) 30 ml PO HS PRN PRN Reason: If No Bowel Movement in 3 Days Last Admin: 08/06/18 22:54 Dose: 30 ml Multivitamins/Minerals (Therapeutic-M Tab) 1 tab PO DAILY [facility] Last Admin: 08/10/18 08:17 Dose: 1 tab Oxycodone/Acetaminophen (Percocet 5/325 Mg Tab) 2 tab PO Q4 PRN PRN Reason: Pain, severe (8-10) Stop: 08/11/18 20:50 Last Admin: 08/09/18 08:02 Dose: 2 tab Oxycodone/Acetaminophen (Percocet 5/325 Mg Tab) 1 tab PO Q4 PRN PRN Reason: Pain, moderate (4-7) Stop: 08/12/18 12:26 Last Admin: 08/10/18 11:56 Dose: 1 tab Phenazopyridine HCl (Pyridium) 100 mg PO TID [facility] Last Admin: 08/10/18 17:21 Dose: 100 mg Tamsulosin HCl (Flomax) 0.4 mg PO DAILY [facility] Last Admin: 08/10/18 08:17 Dose: 0.4 mg - Labs Labs: 08/05/18 07:40 08/05/18 07:40 - Constitutional Appears: Well - Head Exam Head Exam: ATRAUMATIC, NORMAL INSPECTION, NORMOCEPHALIC - Eye Exam Eye Exam: EOMI, Normal appearance Pupil Exam: NORMAL ACCOMODATION, PERRL - ENT Exam ENT Exam: Mucous Membranes Moist, Normal Exam - Neck Exam Neck Exam: Full ROM, Normal Inspection - Respiratory Exam Respiratory Exam: Clear to Ausculation Bilateral, NORMAL BREATHING PATTERN - Cardiovascular Exam Cardiovascular Exam: REGULAR RHYTHM - GI/Abdominal Exam GI & Abdominal Exam: Soft, Normal Bowel Sounds - Rectal Exam Rectal Exam: NORMAL INSPECTION - Exam External exam: NORMAL EXTERNAL EXAM - Extremities Exam Extremities Exam: Full ROM, Normal Capillary Refill, Normal Inspection - Back Exam Back Exam: NORMAL INSPECTION - Neurological Exam Neurological Exam: Alert, Awake Neuro motor strength exam: Right Lower Extremity: 3 - Psychiatric Exam Psychiatric exam: Normal Affect, Normal Mood - Skin Skin Exam: Normal Color Assessment and Plan (1) Status post total left knee replacement Assessment & Plan: plan for physical, occupational therapy improve range of motion of the knee. Monitor pain, patients wants advil at night. Equipment eval Status: Acute (2) Hypertension Status: Acute (3) Osteoarthritis of left knee Status: Acute
[2018-08-11] MEDS: Levothyroxine 75 MCG TAB PO SCH (05:51)
[2018-08-11] MEDS: Enoxaparin 40 mg Syringe SC SCH (08:42)
[2018-08-11] MEDS: Multivitamin With Minerals Tab PO SCH (08:42)
[2018-08-11] MEDS: Oxycodone/Acetaminophen 5/325 mg Tab PO PRN (09:47)
--- NOTE | 2018-08-11 15:17 | CP.PCM.PN ---
Subjective - Date & Time of Evaluation Date of Evaluation: 08/11/18 Time of Evaluation: 15:14 - Subjective Subjective: Patient with family at bedside. Still complainingn of legh swelling but improved Denies CP/SOb/dizziness/numbness/tingling. Objective - Vital Signs/Intake and Output Vital Signs (last 24 hours): Temp Pulse Resp BP Pulse Ox 98.0 F 74 20 155/77 H 97 08/11/18 08:10 08/11/18 08:10 08/11/18 08:10 08/11/18 08:10 08/11/18 08:10 - Medications Medications: Current Medications Acetaminophen (Tylenol 325mg Tab) 650 mg PO Q4 PRN PRN Reason: Fever of 100.6 F and Above Last Admin: 08/09/18 05:16 Dose: 650 mg Acetaminophen (Tylenol 325mg Tab) 650 mg PO Q6 PRN PRN Reason: Pain, Mild (1-3) Last Admin: 08/10/18 01:59 Dose: 650 mg Amlodipine Besylate (Norvasc) 10 mg PO DAILY [facility] Last Admin: 08/11/18 08:42 Dose: 10 mg Docusate Sodium (Colace) 100 mg PO BID PRN PRN Reason: Constipation Last Admin: 08/10/18 08:17 Dose: 100 mg Enoxaparin Sodium (Lovenox) 40 mg SC DAILY [facility]; Protocol Last Admin: 08/11/18 08:42 Dose: 40 mg Finasteride (Proscar) 5 mg PO DAILY [facility] Last Admin: 08/11/18 08:42 Dose: 5 mg Lactulose (Enulose) 20 gm PO DAILY PRN PRN Reason: Constipation Last Admin: 08/11/18 05:51 Dose: 20 gm Levothyroxine Sodium (Synthroid) 75 mcg PO DAILY@0630 [facility] Last Admin: 08/11/18 05:51 Dose: 75 mcg Losartan Potassium (Cozaar) 100 mg PO DAILY [facility] Last Admin: 08/11/18 08:42 Dose: 100 mg Magnesium Hydroxide (Milk Of Magnesia) 30 ml PO HS PRN PRN Reason: If No Bowel Movement in 3 Days Last Admin: 08/06/18 22:54 Dose: 30 ml Multivitamins/Minerals (Therapeutic-M Tab) 1 tab PO DAILY [facility] Last Admin: 08/11/18 08:42 Dose: 1 tab Oxycodone/Acetaminophen (Percocet 5/325 Mg Tab) 2 tab PO Q4 PRN PRN Reason: Pain, severe (8-10) Stop: 08/11/18 20:50 Last Admin: 08/09/18 08:02 Dose: 2 tab Oxycodone/Acetaminophen (Percocet 5/325 Mg Tab) 1 tab PO Q4 PRN PRN Reason: Pain, moderate (4-7) Stop: 08/12/18 12:26 Last Admin: 08/11/18 09:47 Dose: 1 tab Phenazopyridine HCl (Pyridium) 100 mg PO TID [facility] Last Admin: 08/11/18 12:42 Dose: 100 mg Tamsulosin HCl (Flomax) 0.4 mg PO DAILY [facility] Last Admin: 08/11/18 08:42 Dose: 0.4 mg - Labs Labs: 08/05/18 07:40 08/05/18 07:40 - Extremities Exam Additional comments: Left knee: incision intact, dry, no erythema. LLE edema still mild to moderate, but improved. Encouraged ankle pumps, elevated. +DP pulse, sensation intact, calves osft NT neg homans Assessment and Plan (1) Osteoarthritis of left knee Assessment & Plan: plan for d/c home tomorrow with home PT cont VTE proph elevation now able to tolerate PERFECTO stocking on LLE u/a negative, hesitancy and frequency likely due to BPH and narcotic use/decreased ambulation d/w Dr. Cerda, agrees with above Status: Acute
--- NOTE | 2018-08-11 17:58 | CP.PCM.PN ---
Subjective - Date & Time of Evaluation Date of Evaluation: 08/11/18 Time of Evaluation: 12:30 - Subjective Subjective: patient with less complaints of leg pain Objective - Vital Signs/Intake and Output Vital Signs (last 24 hours): Temp Pulse Resp BP Pulse Ox 98.1 F 76 20 150/72 98 08/11/18 15:34 08/11/18 15:34 08/11/18 15:34 08/11/18 15:34 08/11/18 15:34 - Medications Medications: Current Medications Acetaminophen (Tylenol 325mg Tab) 650 mg PO Q4 PRN PRN Reason: Fever of 100.6 F and Above Last Admin: 08/09/18 05:16 Dose: 650 mg Acetaminophen (Tylenol 325mg Tab) 650 mg PO Q6 PRN PRN Reason: Pain, Mild (1-3) Last Admin: 08/10/18 01:59 Dose: 650 mg Amlodipine Besylate (Norvasc) 10 mg PO DAILY [facility] Last Admin: 08/11/18 08:42 Dose: 10 mg Docusate Sodium (Colace) 100 mg PO BID PRN PRN Reason: Constipation Last Admin: 08/10/18 08:17 Dose: 100 mg Enoxaparin Sodium (Lovenox) 40 mg SC DAILY [facility]; Protocol Last Admin: 08/11/18 08:42 Dose: 40 mg Finasteride (Proscar) 5 mg PO DAILY [facility] Last Admin: 08/11/18 08:42 Dose: 5 mg Ibuprofen (Motrin Tab) 600 mg PO ONCE ONE Stop: 08/11/18 17:52 Lactulose (Enulose) 20 gm PO DAILY PRN PRN Reason: Constipation Last Admin: 08/11/18 05:51 Dose: 20 gm Levothyroxine Sodium (Synthroid) 75 mcg PO DAILY@0630 [facility] Last Admin: 08/11/18 05:51 Dose: 75 mcg Losartan Potassium (Cozaar) 100 mg PO DAILY [facility] Last Admin: 08/11/18 08:42 Dose: 100 mg Magnesium Hydroxide (Milk Of Magnesia) 30 ml PO HS PRN PRN Reason: If No Bowel Movement in 3 Days Last Admin: 08/06/18 22:54 Dose: 30 ml Multivitamins/Minerals (Therapeutic-M Tab) 1 tab PO DAILY [facility] Last Admin: 08/11/18 08:42 Dose: 1 tab Oxycodone/Acetaminophen (Percocet 5/325 Mg Tab) 2 tab PO Q4 PRN PRN Reason: Pain, severe (8-10) Stop: 08/11/18 20:50 Last Admin: 08/09/18 08:02 Dose: 2 tab Oxycodone/Acetaminophen (Percocet 5/325 Mg Tab) 1 tab PO Q4 PRN PRN Reason: Pain, moderate (4-7) Stop: 08/12/18 12:26 Last Admin: 08/11/18 09:47 Dose: 1 tab Phenazopyridine HCl (Pyridium) 100 mg PO TID [facility] Last Admin: 08/11/18 16:55 Dose: 100 mg Tamsulosin HCl (Flomax) 0.4 mg PO DAILY [facility] Last Admin: 08/11/18 08:42 Dose: 0.4 mg - Labs Labs: 08/05/18 07:40 08/05/18 07:40 - Constitutional Appears: Well - Head Exam Head Exam: ATRAUMATIC, NORMAL INSPECTION, NORMOCEPHALIC - Eye Exam Eye Exam: Normal appearance Pupil Exam: NORMAL ACCOMODATION, PERRL - ENT Exam ENT Exam: Mucous Membranes Moist, Normal Exam - Neck Exam Neck Exam: Full ROM, Normal Inspection - Respiratory Exam Respiratory Exam: Clear to Ausculation Bilateral, NORMAL BREATHING PATTERN - Cardiovascular Exam Cardiovascular Exam: REGULAR RHYTHM - GI/Abdominal Exam GI & Abdominal Exam: Soft, Normal Bowel Sounds - Rectal Exam Rectal Exam: NORMAL INSPECTION - Exam External exam: NORMAL EXTERNAL EXAM - Extremities Exam Extremities Exam: Full ROM, Normal Capillary Refill, Normal Inspection - Back Exam Back Exam: NORMAL INSPECTION - Neurological Exam Neurological Exam: Alert, Awake Neuro motor strength exam: Right Lower Extremity: 3 - Psychiatric Exam Psychiatric exam: Normal Affect, Normal Mood - Skin Skin Exam: Dry, Normal Color Assessment and Plan (1) Status post total left knee replacement Assessment & Plan: plan to continue with physical, occupational therapy , equipment evaluation and Dc planning. Rule out UTI as per PMD Status: Acute (2) Hypertension Status: Acute (3) Osteoarthritis of left knee Status: Acute
[2018-08-12] MEDS: Levothyroxine 75 MCG TAB PO SCH (06:25)
[2018-08-12 08:09] VITALS: BP 154/79; PULSE 68; TEMP 98.2; O2SAT 100
[2018-08-12] MEDS: Oxycodone/Acetaminophen 5/325 mg Tab PO PRN (08:29)
[2018-08-12] MEDS: Enoxaparin 40 mg Syringe SC SCH (08:30)
[2018-08-12] MEDS: Multivitamin With Minerals Tab PO SCH (08:31)
--- NOTE | 2018-08-12 10:16 | CP.PCM.DIS ---
Provider - Provider Date of Admission: 08/04/18 20:16 Attending physician: Lizy Kenny DO Consults: 08/04/18 20:49 Orthopedic Consult Routine Comment: Consulting Provider: Hardy Cerda III Consulting Physician: Hardy Cerda III Reason for Consult: s/p L TKR 08/05/18 00:05 Case Management Referral Routine Comment: Physician Instructions: Reason For Exam: Reason for Referral: Discharge Planning 08/05/18 06:23 Physiatry Consult Routine Comment: Consulting Provider: Kun Philip Consulting Physician: Kun Philip Reason for Consult: S/P LTKR Time Spent in preparation of Discharge (in minutes): 25 Diagnosis - Discharge Diagnosis (1) Status post total left knee replacement Status: Acute Comment: continue home PT. ASA 81mg PO BID for DVT prophylaxis. Percocet 5/325mg PO q 4hrs prn for pain (2) Hypertension Status: Chronic Comment: BP stable. continue Amlodipine and Losartan (3) Hypothyroid Status: Chronic Comment: continue Levothyroxine (4) BPH (benign prostatic hyperplasia) Status: Chronic Comment: continue Flomax and Proscar Hospital Course - Lab Results Lab Results: Most Recent Lab Values WBC 7.8 K/uL (4.8-10.8) 08/05/18 07:40 RBC 3.69 Mil/uL (4.40-5.90) L 08/05/18 07:40 Hgb 11.2 g/dL (12.0-18.0) L 08/05/18 07:40 Hct 34.0 % (35.0-51.0) L 08/05/18 07:40 MCV 92.2 fl (80.0-94.0) 08/05/18 07:40 MCH 30.2 pg (27.0-31.0) 08/05/18 07:40 MCHC 32.8 g/dL (33.0-37.0) L 08/05/18 07:40 RDW 13.2 % (11.5-14.5) 08/05/18 07:40 Plt Count 157 K/uL (130-400) 08/05/18 07:40 Sodium 136 mmol/l (132-148) 08/05/18 07:40 Potassium 3.9 MMOL/L (3.6-5.0) 08/05/18 07:40 Chloride 101 mmol/L (98-107) 08/05/18 07:40 Carbon Dioxide 23 mmol/L (22-30) 08/05/18 07:40 Anion Gap 16 (10-20) 08/05/18 07:40 BUN 22 mg/dl (9-20) H 08/05/18 07:40 Creatinine 1.0 mg/dl (0.8-1.5) 08/05/18 07:40 Est GFR ( Amer) > 60 08/05/18 07:40 Est GFR (Non-Af Amer) > 60 08/05/18 07:40 Random Glucose 135 mg/dL (75-110) H 08/05/18 07:40 Calcium 8.8 mg/dL (8.4-10.2) 08/05/18 07:40 Urine Color Yellow (YELLOW) 08/10/18 17:14 Urine Clarity Clear (Clear) 08/10/18 17:14 Urine pH 6.0 (5.0-8.0) 08/10/18 17:14 Ur Specific [place] 1.013 (1.003-1.030) 08/10/18 17:14 Urine Protein Negative mg/dL (NEGATIVE) 08/10/18 17:14 Urine Glucose (UA) Neg mg/dL (NEGATIVE) 08/10/18 17:14 Urine Ketones Negative mg/dL (NEGATIVE) 08/10/18 17:14 Urine Blood Negative (NEGATIVE) 08/10/18 17:14 Urine Nitrate Negative (NEGATIVE) 08/10/18 17:14 Urine Bilirubin Negative (NEGATIVE) 08/10/18 17:14 Urine Urobilinogen 0.2-1.0 mg/dL (0.2-1.0) 08/10/18 17:14 Ur Leukocyte Esterase Neg [place]/uL (Negative) 08/10/18 17:14 Urine RBC (Auto) < 1 /hpf (0-3) 08/10/18 17:14 Urine Microscopic WBC 1 /hpf (0-5) 08/10/18 17:14 - Hospital Course Hospital Course: 68 yo male with history of BPH, HTN and OA had left TKR on 08/02/2018 at [facility] after failing conservative management. He was transferred to TCU on 08/04/2018 for continuation of PT. Patient did well and now is ready for discharge. Discharge Exam - Head Exam Head Exam: ATRAUMATIC, NORMAL INSPECTION, NORMOCEPHALIC - Eye Exam Eye Exam: absent: Scleral icterus - ENT Exam ENT Exam: Mucous Membranes Moist - Respiratory Exam Respiratory Exam: absent: Rales, Rhonchi, Wheezes, Respiratory Distress - Cardiovascular Exam Cardiovascular Exam: REGULAR RHYTHM, +S1, +S2 - GI/Abdominal Exam GI & Abdominal Exam: Soft. absent: Tenderness - Rectal Exam Rectal Exam: Deferred - Back Exam Back exam: NORMAL INSPECTION - Neurological Exam Neurological exam: Alert, Oriented x3 - Psychiatric Exam Psychiatric exam: Normal Affect - Skin Skin Exam: Dry, Intact Discharge Plan - Discharge Medications Prescriptions: amLODIPine [Norvasc] 10 mg PO DAILY #30 tab Aspirin [Adult Low Dose Aspirin EC] 81 mg PO BID #60 tablet. Finasteride [Proscar] 5 mg PO DAILY #30 tab Levothyroxine [Synthroid] 0.075 mg PO DAILY #30 tab Losartan [Cozaar] 100 mg PO DAILY #30 tab oxyCODONE/Acetaminophen [Percocet 5/325 mg Tab] 1 tab PO Q4 PRN #20 tab PRN Reason: Pain, Moderate (4-7) Tamsulosin [Flomax] 0.4 mg PO DAILY #30 cap - Follow Up Plan Condition: GOOD Disposition: HOME/ ROUTINE
== END 2018-08-12 13:50 | disposition home or self-care (01) | DRG 561 ==
LOC: H.TCU 20:16
PROVIDERS: ADMIT Student in an Organized Health Care Education/Training Program; ATTEND Student in an Organized Health Care Education/Training Program
DX: Z47.1 Aftercare following joint replacement surgery (principal); Z96.652 Presence of left artificial knee joint; I10 Essential (primary) hypertension; E03.9 Hypothyroidism, unspecified; N40.1 Benign prostatic hyperplasia with lower urinary tract symptoms; Z87.891 Personal history of nicotine dependence; R33.8 Other retention of urine; K59.00 Constipation, unspecified